=== PATIENT | male | born 1985 | race Caucasian/White ===

== ENCOUNTER 2017-11-08 15:51 | Emergency (ER) | payer OTHER ==
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
[2017-11-08 16:05] VITALS: BP 134/72; PULSE 69; TEMP 98.1; BMI 28.0
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
== END 2017-11-08 17:03 | disposition home or self-care (01) ==
LOC: JERFT 15:51
DX: Z04.1 Encounter for examination and observation following transport accident (principal); V59.59XA Passenger in pick-up truck or van injured in collision with other motor vehicles in traffic accident, initial encounter; Y92.488 Other paved roadways as the place of occurrence of the external cause; Y93.89 Activity, other specified; Y99.8 Other external cause status; F79 Unspecified intellectual disabilities
CPT/HCPCS: 99281-25

== ENCOUNTER 2018-01-15 15:28 | Emergency (ER) | payer OTHER ==
[2018-01-15 16:05] VITALS: BP 121/63; PULSE 67; TEMP 97.9; BMI 27.6
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
== END 2018-01-15 17:25 | disposition home or self-care (01) ==
LOC: FER 15:28
DX: Z04.1 Encounter for examination and observation following transport accident (principal); V53.6XXA Passenger in pick-up truck or van injured in collision with car, pick-up truck or van in traffic accident, initial encounter; Y93.89 Activity, other specified; Y92.412 Parkway as the place of occurrence of the external cause; L70.9 Acne, unspecified; H44.20 Degenerative myopia, unspecified eye; F79 Unspecified intellectual disabilities
CPT/HCPCS: 99281-25

== ENCOUNTER 2018-02-04 10:06 | Emergency (ER) | payer OTHER ==
[2018-02-04 10:26] VITALS: BP 117/71; PULSE 65; TEMP 98.6; BMI 27.3
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
== END 2018-02-04 12:56 | disposition home or self-care (01) ==
LOC: FER 10:06
DX: Z04.1 Encounter for examination and observation following transport accident (principal); V77.1XXA Passenger on bus injured in collision with fixed or stationary object in nontraffic accident, initial encounter; Y93.89 Activity, other specified; Y92.410 Unspecified street and highway as the place of occurrence of the external cause; F79 Unspecified intellectual disabilities
CPT/HCPCS: 99281-25

== ENCOUNTER 2018-03-08 11:32 | Emergency (ER) | payer OTHER ==
[2018-03-08 12:04] VITALS: BMI 25.1
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
[2018-03-08 13:01] LABS: BASO % 0.4 % (0-2.0); EOS % 0.5 % (0-4.5); HEMATOCRIT 42.1 % (35.4-49); HEMOGLOBIN 14.1 GM/dL (11.7-16.9); LYMPH % 12.8 % (8-40); MCHC 33.6 g/dl (32.0-35.9); MEAN CELL VOLUME 86.5 fl (80-96); MONO % 9.4 % (3.8-10.2); NEUT % 76.9 % (42.8-82.8); PLATELET COUNT 216 K/MM3 (134-434); RBC 4.87 M/mm3 (4.00-5.60); RDW 13.8 % (11.9-15.9); WHITE BLOOD COUNT 9.8 K/mm3 (4.0-10.0)
--- NOTE | 2018-03-08 13:06 | PDOC ---
History of Present Illness - General Chief Complaint: Blood Pressure Problem Stated Complaint: BLOOD PRESSURE PROBLEMS Time Seen by Provider: 03/08/18 12:13 - History of Present Illness Initial Comments: 03/08/18 12:49 32 year old w/ history of cognitive delay who presents with elevated blood pressure, inability to follow commands since this AM and lack of sleep and delusions in the setting of downtitration of haldol over the past month. Last night the patient's nurse noted his cognitive changes and told his psychiatrist to start him on haldol 5mg again. The patient's nurse said that she noticed that the patient had lost approx 15 pounds since last month. At bedside his weekend nurse noted the patient has a distant history of seizures in the past . The patient has no complaints of headache, chest pain, SOB or abdominal pain. Denied SI or HI. PMHX: cognitive delay PSHX: none Meds: Quetiapine 300mg daily, Haldol 5mg QHS, Benztropine 0.5mg QHS, Loratadine 10mg, Clonazepam 0.5mg BID, [place] 450mg BID Allergies: None 03/08/18 13:17 Past History - Past Medical History Allergies/Adverse Reactions: Allergies Allergy/AdvReac Type Severity Reaction Status Date / Time No Known Allergies Allergy Verified 02/04/18 10:44 Home Medications: Ambulatory Orders Benztropine Mesylate [Cogentin -] 1 mg PO BID 02/29/16 Clotrimazole [Mycelex Rogelio's -] 10 mg PO TID 02/29/16 Erythromycin/Benzoyl Peroxide [Benzamycin Gel] 1 applic TP DAILY 02/29/16 Haloperidol [Haldol -] 1 mg PO DAILY 02/29/16 [place] Carbonate [Eskalith -] 450 mg PO BID 02/29/16 Quetiapine Fumarate [Seroquel -] 50 mg PO HS 02/29/16 Quetiapine Fumarate [Seroquel -] 200 mg PO HS 02/29/16 Sodium Chloride [[place] Saline] 50 ml NS ASDIR 02/29/16 clonazePAM [Klonopin -] 0.5 mg PO BID 02/29/16 CVA: No COPD: No Psychiatric Problems: Yes - Immunization History Immunization Up to Date: Yes - Suicide/Smoking/Psychosocial Hx Smoking History: Never smoked Hx Alcohol Use: No Drug/Substance Use Hx: No Substance Use Type: None Review of Systems - Review of Systems Able to Perform ROS?: Yes Is the patient limited Divehi proficient: No Constitutional: No: Chills, Fever HEENTM: No: Eye Pain, Tinnitus Respiratory: No: Cough, Shortness of Breath Cardiac (ROS): No: Chest Pain, Chest Tightness ABD/GI: No: Constipated, Diarrhea, Nausea, Vomiting Musculoskeletal: No: Muscle Pain, Muscle Weakness Neurological: No: Headache, Seizure *Physical Exam - Vital Signs Last Vital Signs Temp Pulse Resp BP Pulse Ox 98.6 F 92 H 18 123/59 98 03/08/18 11:49 03/08/18 11:49 03/08/18 11:49 03/08/18 11:49 03/08/18 11:49 - Physical Exam Comments: 03/08/18 13:10 GENERAL: Awake, alert, and fully oriented, able to hold a conversation, in no acute distress HEAD: No signs of trauma, normocephalic, atraumatic EYES: EOMI, sclera anicteric, conjunctiva clear ENT: Moist mucosa NECK: Normal ROM LUNGS: No distress, speaks full sentences, clear to auscultation bilaterally HEART: Regular rate and rhythm, normal S1 and S2, no murmurs, rubs or gallops, peripheral pulses normal and equal bilaterally. ABDOMEN: Soft, nontender, normoactive bowel sounds. No guarding, no rebound. No masses EXTREMITIES : Normal inspection, Normal range of motion, no edema. No clubbing or cyanosis. NEUROLOGICAL: Normal speech, normal gait, no focal sensorimotor deficits SKIN: Warm, Dry, normal turgor, no rashes or lesions noted ED Treatment Course - LABORATORY CBC & Chemistry Diagram: 03/08/18 12:50 03/08/18 12:50 - RADIOLOGY Radiology Studies Ordered: Category Date Time Status HEAD CT WITHOUT CONTRAST [CT] Stat CT Scan 03/08/18 12:48 Ordered Medical Decision Making - Medical Decision Making 03/08/18 13:13 32 year old w/ history of cognitive delay who presents with elevated blood pressure, inability to follow commands since this AM and lack of sleep and delusions in the setting of downtitration of haldol over the past month. Symptoms and history are concerning for a change in orientation however it is unclear whether this can be entirely attributed to haldol medication changes, therefore we will assess for other changes of altered mental status such as intracranial bleed, electrolyte abnormalities. However, patient is at baseline now. 03/08/18 13:[address] - unremarkable 03/08/18 14:01 Patient's show a small bump in AST and ALT which is likely due to his psychogenic medications. We will advise that he show these to his PCP and follow up with psychiatry with strict return precautions. Patient is stable for dsicharge, now at baseline *DC/Admit/Observation/Transfer Diagnosis at time of Disposition: Hypertension - Discharge Dispostion Disposition: TRANSFER ACUTE CARE/OTHER HOSP Condition at time of disposition: Guarded Decision to Admit order: No - Referrals - Patient Instructions Printed Discharge Instructions: DI for High Blood Pressure Additional Instructions: You were seen in the ED for changes in mental status and elevated blood pressure. You were evaluated with bloodwork and imaging. You are advised to follow up with your psychiatrist and primary care physician within 1 week for further workup and care. Please return to the ED if there is loss of consciousness, fever, head trauma, suicidal or homicidal ideation, chest pain or severe shortness of breath. - Post Discharge Activity
[2018-03-08 13:24] LABS: ALBUMIN 4.2 g/dl (3.4-5.0); ANION GAP 11 (8-16); BLOOD UREA NITROGEN 26 mg/dL (7-18); CALCIUM 8.9 mg/dL (8.5-10.1); CHLORIDE 108 mmol/L (98-107); CO2 23 mmol/L (21-32); GLUCOSE,RANDOM 88 mg/dL (74-106); POTASSIUM 3.6 mmol/L (3.5-5.1); SGOT/AST 353 U/L (15-37); SGPT/ALT 162 U/L (12-78); SODIUM 142 mmol/L (136-145)
[2018-03-08 13:26] LABS: ALK PHOS 55 U/L (45-117); BILIRUBIN,TOTAL 1.3 mg/dL (0.2-1.0); TOT PROT 6.4 g/dl (6.4-8.2)
[2018-03-08 14:04] VITALS: BP 110/71; PULSE 74; TEMP 98.1
== END 2018-03-08 14:16 | disposition short-term general hospital (02) ==
LOC: JER 11:32
DX: I10 Essential (primary) hypertension (principal); F81.9 Developmental disorder of scholastic skills, unspecified
CPT/HCPCS: 36415; 70450-TC; 80053; 85025; 99282-25